=== PATIENT | female | born 1935 | race Caucasian/White ===

== ENCOUNTER 2017-03-13 10:53 | Inpatient (IN) | payer MEDICARE, OTHER ==
--- NOTE | ~2017-03-13 | CN ---
Consultation Report [facility] [address] [place]. [address] NAME: XIMENA ANDREWS : 35 STATUS : ADM IN PAT#: [id number] AGE: 81 ADM/REG DATE : 03/13/17 MR#: [id number] REPORT SERV DATE: 03/14/17 DICTATED BY: REJI KITCHEN DATE: 03/14/17 REPORT STATUS : Draft TRANSCRIBED BY: MODL DATE: 03/14/17 INFECTIOUS DISEASE CONSULT DATE OF CONSULTATION: REASON FOR CONSULT: Enterococcal bacteremia. HISTORY OF PRESENT ILLNESS: An 81-year-old white lady with history of peripheral vascular disease, status post left carotid endarterectomy, left superficial femoral artery stent, infrarenal aortic stenosis, diabetes, COPD, lung nodules, coronary artery disease, pacemaker for bradycardia, hypertension, liver cirrhosis of unknown etiology, with rectal and esophageal varices. She had an upper endoscopy in 2013, who was admitted for fever, chills, and weakness. She has had a history of frequent hospitalizations and she was here between the 12/19/2016 and 12/21/2016 with supposed COPD exacerbation and again between the 12/24/2016 and 12/28/2016. She had a followup CT of the chest in January for the nut former that showed subcentimeter pulmonary nodules and granulomatous changes in the liver and spleen. On the 03/10/2017, she got off her electric chair to diamond picker something from a higher level, she stepped on a stool, and when she stepped down, she got caught in the electric chair footrest, so she fell. It sounds like she fell against her bottom. The next day, she started feeling sick. She had nausea, lack of appetite, vomiting, and fever. Her family brought her to the hospital on the 03/13/2017. Although she reportedly had complaints of nausea and vomiting, in the ER, the exam mentioned diffuse expiratory wheezes. She was treated as a community-acquired pneumonia with Rocephin, azithromycin, and high doses of steroids. Today, the blood cultures done in the ER came positive for Enterococcus sensitive to vancomycin, so an ID consult was requested. The patient reported normal bowel movements until she fell, but since then she has had just "smears." She had colonoscopy in 2013 that showed hemorrhoids and rectal varices and an EGD that showed the gastritis and esophageal varices. She reports no problems urinating. No dysuria. No retention that she knows of. She has had no abdominal pain. No exacerbation of cough or shortness of breath. No new joint pains or bone pains. Upon admission, she had a temperature of 101.7. Lab work showed a lactic acid of 1.5, procalcitonin of 2.9, WBC 14.9. Urinalysis was suggestive of some dehydration with some casts, few bacteria, very little white blood cells. ABGs on admission on 2 L showed pH of 7.5, pCO2 of 35, pO2 of 75, and saturation 96% on 2 L. Chest x-ray, with poor inhalation plus obesity on a portable film made for a poor image. She had a CT scan of the abdomen and pelvis without contrast. On the lower lung vega, there was no obvious infiltrate. The liver was small. The liver enlarged. There is some calcifications in the liver and spleen. There are some mild left kidney atrophies without any kidney stones. Consultation Report [address] [address] NAME: XIMENA ANDREWS : 35 STATUS : ADM IN PAT#: [id number] AGE: 81 ADM/REG DATE : 03/13/17 MR#: [id number] REPORT SERV DATE: 03/14/17 DICTATED BY: REJI KITCHEN DATE: 03/14/17 REPORT STATUS : Draft TRANSCRIBED BY: KARLY DATE: 03/14/17 Today, she is afebrile. She is on 2 L of oxygen. Blood pressure is on the high side. LABORATORY WORK: Lab work showed a WBC of 6, platelets 77, segments 86, bands 1, creatinine 0.8. Echocardiogram had adequate visualization, good left ventricular ejection fraction, presence of diastolic dysfunction, trace mitral and tricuspid regurgitation, some mild aortic and mitral valve leaflets thickening. There is no mention about the pacemaker wire that I can see. PAST MEDICAL HISTORY: As I mentioned above plus prior history of esophageal stricture. PAST SURGICAL HISTORY: Cholecystectomy, appendectomy, hysterectomy, lower back surgery, pacemaker placement, and left hand surgery. FAMILY HISTORY: Diabetes, lung cancer, heart disease. ALLERGIES: CODEINE, CAUSED "HIVES AND WELTS. MEDICATIONS ON ADMISSION: Amlodipine, aspirin, Lipitor, Astelin nasal spray, Symbicort, carvedilol, Flonase as needed, Lasix, hydralazine, insulin, labetalol, lisinopril, Mycostatin cream under the breast and abdomen, spironolactone. SOCIAL HISTORY: Lives with her daughter. She is a . Quit smoking in the past. PHYSICAL EXAMINATION: GENERAL: She is alert. HEENT: She is edentulous. She is a good historian. LUNGS: Mildly decreased sounds. Very few fine crackles, but nothing significant. HEART: Regular rhythm with about 2/6 murmur at the sternal border and precordial. ABDOMEN: Obese. Questionable left lower quadrant tenderness to the palpation. EXTREMITIES: Hands and feet without signs of embolies. SKIN: She has some erythema in the deep skin fold of the groin. I did not see any open wounds. She has a tiny ecchymosis over the right coccyx area, but no open wound. OTHER INVESTIGATIONS: Influenza screen negative. Pneumococcal urine antigen negative. Yesterday, bilirubin was 2.7. Transaminases within normal limits. ASSESSMENT AND PLAN: 1. Enterococcus bacteremia. 2. The patient has a pacemaker, liver cirrhosis with esophageal and rectal varices and chronic obstructive pulmonary disease. 3. History of diabetes,peripheral vascular disease. Reported prior left superficial femoral artery stent and infrarenal aortic stenosis. Consultation Report [address] [place]. [address] NAME: XIMENA ANDREWS : 35 STATUS : ADM IN [facility]#: [id number] AGE: 81 ADM/REG DATE : 03/13/17 MR#: [id number] REPORT SERV DATE: 03/14/17 DICTATED BY: REJI KITCHEN DATE: 03/14/17 REPORT STATUS : Draft TRANSCRIBED BY: MODKem DATE: 03/14/17 The source of bacteremia is not clear. Again, with this organism, I have to worry about the GI tract. This patient has presumed liver cirrhosis. She has esophageal and rectal varices. Echocardiogram showed no obvious findings to suggest endocarditis, but I think, we should consider MEREDITH, especially with the presence of pacemaker. I will consult Dr. Bobo Kuhn who put the pacemaker in. The pacemaker site has no inflammatory changes. Last colonoscopy was in 2013 as I mentioned. The repeat blood cultures were sent. I do not see any evidence of pneumonia or chronic obstructive pulmonary disease exacerbation, so we will stop the Rocephin and azithromycin and taper down the steroids. I discussed with the patient and her nurse. ESME/MODL Reji Kitchen M.D. / [id number] CC: MD LATONYA Shay CINDY MARIE
--- NOTE | ~2017-03-13 | DS ---
Discharge Summary [address] [place]. [address] NAME: XIMENA ANDREWS : 35 STATUS : DIS IN PAT#: [id number] AGE: 81 ADM/REG DATE : 03/13/17 MR#: [id number] REPORT SERV DATE: 03/23/17 DICTATED BY: NICA CROSS DATE: 03/21/17 REPORT STATUS : Draft TRANSCRIBED BY: MODL DATE: 03/21/17 ADMISSION DATE: 03/13/2017 DISCHARGE DATE: 03/21/2017 DISCHARGE DIAGNOSES: 1. Enterococcal bacteremia. 2. Enterococcal endocarditis. 3. Uncontrolled hypertension. 4. Uncontrolled diabetes with hypoglycemia. 5. Chronic hypoxemic respiratory failure. 6. Chronic obstructive pulmonary disease. 7. Coronary artery disease with previous stenting. 8. Peripheral arterial disease with previous left carotid endarterectomy, left superficial femoral artery stent, and to date, nontreated infrarenal aortic stenosis. 9. Pulmonary nodule, stable on CT. 10.Cirrhosis with varices and splenomegaly. 11.Thrombocytopenia. 12.Hyperlipoproteinemia. 13.Iron deficiency, followed by Dr. Hurst. 14.B12 deficiency, documented in 06/2016, therapy started. 15.Proteinuria. 16.Left renal atrophy. 17.Sick sinus syndrome, post-pacemaker placement. OPERATIONS AND PROCEDURES: PICC line placement. PRESENT ILLNESS: This is an 81-year-old white female, who was triaged in the emergency room on 03/13/2017, at 1053 hours, complaining of chills and vomiting. Admission ER vital signs; blood pressure 205/65, temp 101.7, pulse 83, respirations 18, O2 saturation 87%. After evaluation in the emergency room, she was thought to have hypoxemic respiratory failure with pneumonia. She was referred to the Hospitalist Service. She was seen by Dr. Tidwell, admitted as described on admission history and physical examination. ADDITIONAL HISTORY: Included a hospitalization here on 12/19/2016 to 12/21/2016 with discharge diagnoses, chronic obstructive pulmonary disease exacerbation. In addition, she was here on 12/24/2016 to 12/28/2016, again with what was thought to be a chronic obstructive pulmonary disease exacerbation. Additional history per Dr. Tidwell and ID professional housing consultant, Dr. Noonan. PHYSICAL EXAMINATION: Per Dr. Tidwell. ADMISSION LABORATORY: Per Dr. Tidwell. Discharge Summary [address] [place]. [address] NAME: XIMENA ANDREWS : 35 STATUS : DIS IN PAT#: [id number] AGE: 81 ADM/REG DATE : 03/13/17 MR#: [id number] REPORT SERV DATE: 03/23/17 DICTATED BY: NICA CROSS DATE: 03/21/17 REPORT STATUS : Draft TRANSCRIBED BY: MODL DATE: 03/21/17 HOSPITAL COURSE: She was admitted by Dr. Tidwell with working diagnoses of: 1. Community-acquired pneumonia with sepsis, could also be a bronchitis with sepsis. 2. Acute exacerbation of chronic obstructive pulmonary disease. 3. Respiratory alkalosis. 4. All of the above occurring in the setting of the above-mentioned comorbidities. She was admitted to [address] [place] [address]. She was given oxygen, bronchodilator therapy, and empiric antimicrobial therapy with Rocephin and Zithromax. In addition, she was given IV corticosteroids. Her blood cultures returned growing Enterococcus faecalis. ID consultation was obtained with Dr. Reji Noonan. His impression was Enterococcus bacteremia. Her vascular, pacemaker, pulmonary, and hepatic disease were noted. The source of her bacteremia was not clear. He was concerned about her GI tract. He suggested a transesophageal echocardiogram in the presence of her pacemaker. He also felt she would need a colonoscopy in the near future. Cardiology consultation was obtained. She was seen by Dr. Corey Kuhn. A transthoracic echocardiogram was initially done that showed normal LV size with preserved EF, mild LVH with mild left atrial enlargement, moderate diastolic dysfunction, and normal RV size and systolic function with trace mitral and tricuspid regurgitation. Based on the above, a transesophageal echocardiogram was done on 03/16/[address] Kuhn. Findings included the aortic valve noncoronary cusp has a suspicious undulating echodensity on the aortic side of the valve. Normal variant versus vegetation. No other significant abnormalities were noted. Based on the above, it was felt she should be treated as if she had Enterococcal faecalis endocarditis with six weeks of Rocephin and ampicillin. Surveillance blood cultures on antimicrobial therapy done on the were no growth. Her hospitalist care was assumed by the undersigned on 03/20/2017. She was also seen on 03/21/2017. She required intensification of her antihypertensive therapy and deescalation in her insulin therapy for uncontrolled hypertension and symptomatic hypoglycemia. A PICC line was placed. Case Management was able to provide a discharge destination at [facility], which was satisfactory with the patient. On 03/21/2017, she felt overall improved. She was still weak. She had no focal symptoms or new findings on exam. Discharge BMP: Sodium 135, potassium 4.3, chloride 97, CO2 of 34, BUN 15, creatinine 0.99, glucose 128, calcium 9.1. CBC: White count 6.6, hemoglobin 13.2, and platelets 130,000. A.c. and bedtime blood sugars on 03/20/2017; 145, 138, 98, 176; the day of discharge, 137 and 159. Discharge Summary [address] [address] NAME: XIMENA ANDREWS : 35 STATUS : DIS IN PAT#: [id number] AGE: 81 ADM/REG DATE : 03/13/17 MR#: [id number] REPORT SERV DATE: 03/23/17 DICTATED BY: NICA CROSS DATE: 03/21/17 REPORT STATUS : Draft TRANSCRIBED BY: KARLY DATE: 03/21/17 It is felt she has achieved a level of stability improvement where she can be safely discharged to [facility]. She will need a followup appointment to see Dr. Noonan in three to four weeks. She will need a followup appointment to see Dr. Corey Kuhn for a repeat transesophageal echo in three to four weeks. She will need to have an outpatient colonoscopy with the GI physician that provides care for [place] Medicaid patients. DISCHARGE MEDICATIONS: Aspirin 81 mg daily, Lipitor 20 mg daily, Astelin nasal spray two sprays twice daily, Coreg 12.5 mg twice daily, Rocephin 2 g IV q.12 hours for four weeks, Lasix 40 mg daily, NovoLog insulin correction scale 1 a.c., NovoLog 8 units a.c., Levemir 24 units daily, Zestril 40 mg daily, Mycostatin cream under the breast and abdominal skin folds twice daily, Aldactone 25 mg twice daily, Apresoline 25 mg three times daily, ampicillin 2 g IV every 6 hours for four weeks, albuterol nebs q.4 hours while awake, Dulera two puffs twice daily, Tylenol 650 mg every six hours as needed, hypoglycemia protocol with 50% dextrose 25/50 mL, glucagon 1 mg IM or glucose tabs 3 or 6, Flonase nasal spray two sprays per nostril twice daily as needed, Zofran 4 mg p.o. or sublingually every 4 hours as needed, amlodipine 5 mg at bedtime, B12 1000 mcg daily. She will need a CBC and CMP done weekly faxed to Dr. Noonan, [phone]. DISCHARGE TIME: Greater than 30 minutes. DD/MODL Nica Cross M.D. / [id number] CC: Eh Carranza CINDY MARIE Michael C Allan, M.D. Paul Cornea, M.D. [facility]
--- NOTE | ~2017-03-13 | HP ---
History And Physical [address] [place]. [address] NAME: XIMENA ANDREWS : 35 STATUS : ADM IN [facility]#: [id number] AGE: 81 ADM/REG DATE : 03/13/17 MR#: [id number] REPORT SERV DATE: 03/13/17 DICTATED BY: INDER TIDWELL DATE: 03/13/17 REPORT STATUS : Draft TRANSCRIBED BY: MODL DATE: 03/13/17 DATE OF ADMISSION: 03/13/2017 CHIEF COMPLAINT: Fevers and chills. HISTORY OF PRESENT ILLNESS: This is an 81-year-old lady with history of coronary artery disease, peripheral vascular disease, diabetes, hypertension, COPD, presenting with fevers and chills. The patient reports that on Sunday, she felt weak and she actually fell. Fortunately, the patient did not sustain any injuries. The patient thought she would rest off at home, but then on Sunday, the patient continued to have malaise, generalized weakness, and "feeling sick." The patient reports the sickness as having fevers with chills. The patient also had some nausea and decrease in appetite. The patient has had some cough, but nothing that was actually out of the norm from her baseline. The patient otherwise did not have any other focal symptoms. Denies any dysuria. Denies any diarrhea. The patient also denies any focal pain other than the mild pain in her bottom from the fall. The patient decided to come to the ER for further evaluation and care. In the ER, patient was found to be febrile with temperature of 101.7. The patient was otherwise hemodynamically stable. Initial lab evaluation revealed benign electrolytes, but with a leukocytosis of 14.9 on CBC. Chest x-ray showed mild venous congestion and urinalysis was negative. Flu panel was negative, but procalcitonin was also elevated at 0.9. Internal Medicine consultation was requested for admission of the patient for further evaluation and care. REVIEW OF SYSTEMS: The patient has had the fevers with chills. Otherwise, 14-point review of systems reviewed and negative other than mentioned above. MEDICATIONS: 1. Tylenol 500 to 1000 mg p.o. three times daily p.r.n. 2. Norvasc 10 mg p.o. at bedtime. 3. Aspirin 81 mg p.o. q.a.m. 4. Lipitor 20 mg p.o. at bedtime. 5. Symbicort two puffs inhaled twice daily. 6. Coreg 12.5 mg p.o. b.i.d. 7. Flonase two sprays nasally twice daily p.r.n. 8. Lasix 40 mg p.o. q.a.m. 9. Levemir 24 units twice daily subcu. 10.NovoLog 10 units subcu three times daily before meals. 11.Lisinopril 40 mg p.o. at bedtime. 12.Nystatin cream twice daily under breasts and abdominal skin folds. 13.Aldactone 25 mg p.o. b.i.d. 14.Hydralazine 10 mg p.o. b.i.d. 15.Labetalol 100 mg p.o. q.12 hours p.r.n. ALLERGIES: CODEINE. History And Physical [address] [address] NAME: XIMENA ANDREWS : 35 STATUS : ADM IN [facility]#: [id number] AGE: 81 ADM/REG DATE : 03/13/17 MR#: [id number] REPORT SERV DATE: 03/13/17 DICTATED BY: INDER TIDWELL DATE: 03/13/17 REPORT STATUS : Draft TRANSCRIBED BY: KARLY DATE: 03/13/17 PAST MEDICAL HISTORY: 1. Insulin-dependent diabetes type 2. 2. Coronary artery disease. 3. Hypertension. 4. Hypothyroidism. 5. Peripheral vascular disease. 6. Chronic obstructive pulmonary disease, on 2 L of oxygen nightly. 7. GERD. PAST SURGICAL HISTORY: 1. Left carotid endarterectomy. 2. Left superficial femoral artery stents. 3. Coronary artery stents. 4. Cholecystectomy. 5. Appendectomy. 6. Hysterectomy. 7. Several back surgeries. FAMILY HISTORY: 1. Diabetes. 2. Coronary artery disease. SOCIAL HISTORY: The patient has a 35 pack-year history of smoking before she quit in 1999. The patient does not use alcohol or use any illicit drugs. The patient lives at home with her daughter and two granddaughters. At baseline, the patient ambulates with a walker as well as a walking stick. Also, for extended trips, the patient has a power wheelchair. PHYSICAL EXAMINATION: VITAL SIGNS: Temperature 101.7, blood pressure 135/50, pulse is 83, respiratory rate is 18, saturating 87% on 2 L of oxygen. NEURO: The patient is alert and oriented x3 with no focal neurologic deficits. GENERAL: The patient is awake, does not appear to be in acute distress, and she is cooperative. NECK: No JVD. No lymphadenopathy. Normal thyroid. CHEST: No midline sternotomy scar and no tenderness to palpation. LUNGS: The patient has diffuse rhonchi bilaterally with some scattered wheezes. The patient otherwise has fairly normal respiratory effort on 2 L of oxygen per nasal cannula. CARDIOVASCULAR: Regular rate and rhythm with no murmurs, rubs, or gallops, and PMI is nondisplaced. ABDOMEN: Soft, nontender with active bowel sounds, and no organomegaly. EXTREMITIES: No edema. Normal distal pulses. No calf tenderness. SKIN: Clean, dry, warm, and intact. LABORATORY DATA: Sodium is 134, potassium 3.0, chloride 95, BUN 15, creatinine 0.81, glucose 129, calcium 8.9. LFTs and lipase are within normal limits. White blood cell count is 14.9, hemoglobin 13.8, platelets 85. Lactate was 1.5. Procalcitonin level is 2.9. Flu History And Physical [address] [address] NAME: XIMENA ANDREWS : 35 STATUS : ADM IN [facility]#: [id number] AGE: 81 ADM/REG DATE : 03/13/17 MR#: [id number] REPORT SERV DATE: 03/13/17 DICTATED BY: INDER TIDWELL DATE: 03/13/17 REPORT STATUS : Draft TRANSCRIBED BY: MODL DATE: 03/13/17 panel was negative for A and B. Urinalysis was also negative for urinary tract infection. Chest x-ray is personally interpreted and it shows a bout of venous congestion, but no focal infiltrates. ABG showed pH of 7.50, pCO2 35, PO2 75, and oxygen saturation of 95.8% on 28% FiO2. ASSESSMENT AND PLAN: This is an 81-year-old lady with history of chronic obstructive pulmonary disease, hypertension, diabetes, coronary artery disease, and peripheral vascular disease, presenting with a community-acquired pneumonia with sepsis. 1. Community-acquired pneumonia with sepsis, could also be a bronchitis with sepsis. 2. Acute exacerbation of chronic obstructive pulmonary disease. 3. Respiratory alkalosis. 4. Chronic thrombocytopenia. 5. Hypokalemia. 6. Insulin-dependent diabetes type 2. 7. Hypertension. 8. Coronary artery disease. 9. Peripheral vascular disease. 10.Hypothyroidism. PLAN: The plan is to admit the patient under telemetry monitoring. The patient will be given oxygen support and bronchodilator therapy. The patient will be started on empiric IV Rocephin and Zithromax. The patient will also be treated with IV steroids. I will complete infectious workup with blood cultures, sputum cultures, procalcitonin level, and urinary antigens, and for electrolyte deficiencies, they will be replaced as needed. For the rest of stable past medical conditions including diabetes, coronary artery disease, peripheral vascular disease, I will continue home medications. The patient will also be seen by Physical Therapy for assessment of safety at home. Standard DVT prophylaxis. The patient is full code at this time. YSC/MODL Inder Tidwell MD / [id number] CC: Inder Tidwell MD [facility] YU
--- NOTE | ~2017-03-13 | TEE ---
Transesophageal Echocardiogram [facility] [address] [place]. [address] NAME: XIMENA ANDREWS : 35 STATUS : ADM IN [facility]#: [id number] AGE: 81 ADM/REG DATE : 03/13/17 MR#: [id number] REPORT SERV DATE: 03/16/17 DICTATED BY: AMANDA KUHN DATE: 03/16/17 REPORT STATUS : Draft TRANSCRIBED BY: MODKem DATE: 03/16/17 INDICATION: Bacteremia. PROCEDURE IN DETAIL: The patient was brought to the Cardiac Short-Stay Unit in a fasting state. I thoroughly discussed the risks and benefits of the procedure with the patient. She agreed to proceed. All questions were answered. She was prepared in the usual fashion on the short-stay bed. The Anesthesia Service was present to provide monitored anesthesia care in the form of IV propofol. When a proper level of sedation was achieved, the transesophageal echocardiogram probe was gently inserted into the patient's oropharynx and advanced into the esophagus without difficulty. FINDINGS: The left atrium is mildly enlarged. No thrombus is seen. The left atrial appendage does not show any thrombus. The mitral valve is morphologically normal. There is mild mitral regurgitation. No vegetation is seen. Left ventricular systolic function appears to be grossly preserved. The right ventricle is grossly within normal limits. The tricuspid valve is fairly well seen. No obvious vegetation or thrombus is seen. There is [id number] tricuspid insufficiency. Pacing wires are seen in the right heart. Examination of these wires does not reveal any vegetation. The right atrium is mildly enlarged. The interatrial septum is intact by 2D interrogation as well as color flow Doppler. The aortic valve is trileaflet and opens well. There is no significant aortic insufficiency. On the non-coronary cusp, there is a small undulating mass on the aortic side. This may possibly represent some variant of normal anatomy or could possibly represent vegetation. It is small and does not impede flow. The echodensity does not suggest thrombus or calcification. Echodensity is very similar to the valve itself. The pulmonic valve is not well seen. Grossly there is no abnormality. No significant pulmonic insufficiency is seen. There is no obvious pericardial effusion. The descending thoracic aorta has mild atherosclerotic plaquing. CONCLUSION: 1. THE AORTIC VALVE NON-CORONARY CUSP HAS A SUSPICIOUS UNDULATING ECHODENSITY ON THE AORTIC SIDE OF THE VALVE. NORMAL VARIANT CANNOT BE RULED OUT, NOR CAN VEGETATION. 2. NO OTHER SIGNIFICANT ABNORMALITIES NOTED ABOVE. MCA/MODL anda Kuhn M.D. / [id number]
--- NOTE | ~2017-03-13 | IDS ---
Interim Discharge Summary [facility] [address] [place]. [address] NAME: XIMENA ANDREWS : 35 STATUS : ADM IN [facility]#: [id number] AGE: 81 ADM/REG DATE : 03/13/17 MR#: [id number] REPORT SERV DATE: 03/19/17 DICTATED BY: INDER OLIVAREZ DATE: 03/19/17 REPORT STATUS : Draft TRANSCRIBED BY: MODL DATE: 03/19/17 ADMISSION DATE: 03/13/2017 DISCHARGE DATE: WORKING DIAGNOSES: 1. Enterococcal bacteremia. 2. Enterococcal endocarditis of aortic valve. 3. Poorly-controlled hypertension. 4. Coronary artery disease. 5. Insulin-dependent diabetes type 2. 6. Peripheral vascular disease. 7. Chronic obstructive pulmonary disease with chronic hypoxic respiratory failure on 2 L of oxygen at baseline at home. CONSULTANTS: 1. Dr. Noonan of Infectious Disease. 2. Cardiology. PROCEDURES: Transesophageal echocardiogram, performed on 03/16/[address] Bobo Kuhn, showed an aortic valve noncoronary cusp has a suspicious undulating echodensity on the aortic side of the valve. Normal variant cannot be ruled out nor can vegetation. Otherwise, it did not show any significant abnormalities. HOSPITAL COURSE: This is an 81-year-old lady who was initially admitted to the hospital with diagnosis of a community-acquired pneumonia with sepsis. For details, please refer to my own H and P. In summary, the patient was admitted and was started on empiric antibiotics for community-acquired pneumonia. By the second day of the hospital stay, the patient was found to have enterococcal bacteremia. The patient had repeat blood cultures that were positive for enterococcal bacteremia. Infectious Disease was consulted, and the patient subsequently underwent a transesophageal echocardiogram with the findings as mentioned above. Currently, the patient is on ampicillin 2 g IV q.6h as well as Rocephin 2 g IV q.12. The patient will tentatively be treated with the above IV antibiotics for four to six weeks, and the patient will need to have a repeat transesophageal echocardiogram. As the source of infection is unclear, Infectious Disease has recommended the patient to have a colonoscopy, which she can have as an outpatient in the near future. Case Management is working to get it scheduled. The patient will likely need to be transferred to SNF to continue the IV antibiotic therapy. Otherwise, the patient has been fairly stable in the rest of her chronic medical conditions. ODALIS/KARLY Inder Olivarez MD Interim Discharge Summary [address] [address] NAME: XIMENA ANDREWS : 35 STATUS : ADM IN PAT#: [id number] AGE: 81 ADM/REG DATE : 03/13/17 MR#: [id number] REPORT SERV DATE: 03/19/17 DICTATED BY: INDER OLIVAREZ DATE: 03/19/17 REPORT STATUS : Draft TRANSCRIBED BY: KARLY DATE: 03/19/17 / [id number] CC: MD LATONYA Shay CINDY MARIE
--- NOTE | ~2017-03-13 | CN ---
Consultation Report [facility] [address] [place]. [address] NAME: XIMENA CANTOR : 35 STATUS : ADM IN PAT#: [id number] AGE: 81 ADM/REG DATE : 03/13/17 MR#: [id number] REPORT SERV DATE: 03/15/17 DICTATED BY: BOBO KUHN DATE: 03/15/17 REPORT STATUS : Draft TRANSCRIBED BY: MODL DATE: 03/15/17 CONSULTATION DATE OF CONSULTATION: 03/15/2017 REASON FOR VISIT: Bacteremia. HISTORY OF PRESENT ILLNESS: Ms. Cantor is an 81-year-old female with sick sinus syndrome, has a chronic indwelling pacemaker. She has presented to the hospital with infection type symptoms. Bacteremia has been diagnosed. Thus far, there is no obvious source. I have been asked to perform a MEREDITH due to the indwelling pacemaker and possibility of an infected pacemaker or endocarditis. She reports no difficulty swallowing at this time. PAST MEDICAL HISTORY: 1. Sick sinus syndrome with pacemaker. 2. Diabetes. 3. History of coronary artery disease. 4. Hypertension. 5. Hypothyroidism. 6. Peripheral vascular disease. SOCIAL HISTORY: She does not smoke. There is no family in the room at this time. FAMILY HISTORY: Noncontributory. HOME MEDICATIONS: Please see the list in the chart as it is extensive. Relevant cardiac medications are Norvasc 10 mg every night at bedtime, Lipitor 20 mg at bedtime, carvedilol 12.5 mg b.i.d., hydralazine 10 mg b.i.d., lisinopril 40 mg every night at bedtime, spironolactone 25 mg b.i.d. ALLERGIES: SHE IS ALLERGIC TO CODEINE. REVIEW OF SYSTEMS: A 10 system review was asked and is negative except for noted above in history of present illness and for the following. She had a fall over the weekend. She has been weak and tired. She has had nausea. She has had fevers and chills at home. A productive cough. No chest pain or palpitations. PHYSICAL EXAMINATION: VITAL SIGNS: Temperature 98.8, heart rate 71, blood pressure 193/81. GENERAL: Ms. Cantor is a well-developed female, who does not appear to be critically ill. She is in no distress. HEENT: Negative. She does not appear dehydrated. There is no JVD in her neck. LUNGS: Sound clear. Consultation Report [facility] [id number] [place]. [address] NAME: XIMENA CANTOR : 35 STATUS : ADM IN [facility]#: [id number] AGE: 81 ADM/REG DATE : 03/13/17 MR#: [id number] REPORT SERV DATE: 03/15/17 DICTATED BY: BOBO KUHN DATE: 03/15/17 REPORT STATUS : Draft TRANSCRIBED BY: KARLY DATE: 03/15/17 HEART: Tones are regular. There is no obvious murmur. ABDOMEN: The abdominal exam overall was benign. She has bowel sounds. She is not tender. EXTREMITIES: Does not show significant edema. NEUROLOGICAL: She moves all four extremities equally. Normal speech. SKIN: Exam shows bruising. No obvious rash. LABORATORY DATA: White blood cell count 6, hematocrit 37.6, platelets 100. Sodium 137, potassium 3.7, BUN 22, creatinine 0.8. Troponin 0.14 and then 0.02. Urinalysis does not show obvious infection. There is a telemetry that shows atrial pacing. Echocardiogram, this demonstrates a normal ejection fraction with no obvious vegetation seen. IMPRESSION: 1. Unexplained bacteremia. 2. Pacemaker. PLAN: Reasonable to perform a transesophageal echocardiogram to examine her pacemaker leads and to examine her valves more closely for any sign of infection. I have discussed this with her today. As before, she denies any recent swallowing problems. We discussed the risks and benefits of this. In particular, we discussed sedation risks via the anesthesiologist, risk of perforation or bleeding. She understands these risks are small and she agrees to proceed, this will be tomorrow. MCKENZIE/KARLY Bobo Kuhn M.D. / [id number] CC: MD Radha Shay
[~2017-03-13 10:53] MED LIST: ACET500CAP PO; ACTOS45 PO; ALBUTEROL0.083 % INH; AMOXIL500 MG PO; APRES25 PO; ASAB PO; ASTELIN NAS; AUG875 PO; AVELOX400 PO; BIAXIN5 PO; CAT1 PO; CAT2 PO; CEFT5 PO; COR20 PO; COR40 PO; COREG12 PO; COREG25 PO; COREG6 PO; DULERA 200 MCG/13 GM INH; EZFE 200200 MG PO; FERROUS SULF325 M1 PO; FLONASE NAS; FLORASTOR250 MG PO; GLUCOPHAGE1000 MG PO; GLUCOTRO10 PO; GLUCOV5 PO; HALF81 PO; HCTZ25B PO; HYDROCHLOROT25 MG OR; HYDROMET1 ML PO; JANUMET1 TA1 PO; JANUVIA100 MG PO; K-TABS10 MEQ PO; L40 PO; LANTUS SC; LEVAQUIN750 MG PO; LEVEMFLXPN SC; LEVEMIR SC; LIPITOR20 PO; LISINOPRIL40 MG PO; MUCINEX600 MG PO; MYCOSCROI TOP; NORV10 PO; NORV5 PO; NOVOLOG SC; NOVOPENMIX SC; OCEAN NAS; P10 PO; P20 PO; PRILO PO; PROAIR HFA INH; SPIRIVA INH; SPIRO25 PO; SPIRO50 PO; SYMBICORT 160/41 INH INH; TRANDAT100 PO; ZESTRIL30 MG PO; ZESTRIL40 MG PO
[2017-03-13 11:35] LABS: BASOPHILS 0 %; EOSINOPHILS 0 %; HEMATOCRIT 39.7 % (36.0-48.0); HEMOGLOBIN 13.8 g/dL (12.0-16.0); IMMATURE GRANULOCYTES 0.3 %; IMMATURE GRANULOCYTES ABSOLUTE 0.05 10/3/uL (0.0-0.11); LYMPHOCYTES 12.8 %; MEAN CORPUS HGB CONC 34.8 g/dL (32.0-36.0); MEAN CORPUSCULAR HEMOGLOB 31.7 pg (26.0-34.0); MEAN CORPUSCULAR VOLUME 91.1 fL (80-100); MEAN PLATELET VOLUME 11.1 fL (9.2-13.0); MONOCYTES 6.1 %; MONOCYTES ABSOLUTE 0.91 10/3/uL (0.21-1.20); NEUTROPHILS 80.8 %; NEUTROPHILS ABSOLUTE 12.04 10/3/uL (2.02-8.40); PLATELET COUNT 85 10/3/uL (150-400); RBC DISTRIBUTION WIDTH 13.7 % (12.0-16.0); RED CELL COUNT 4.36 10/6/uL (4.0-5.6)
[2017-03-13 11:38] LABS: ER CBC TAT 0 Hrs 08 Mins; MANUAL DIFF NO %; WHITE BLOOD CELLS 14.9 10/3/uL (4.5-10.5)
[2017-03-13 11:49] LABS: ALLENS TEST Pos; BE (BASE EXCESS) 3.5 MEQ/L (0 +/- 2.5); CARBOXYHEMOGLOBIN 1.9 % (0-3); DEVICE NC; HCO3 (ACTUAL BICARBONATE) 26.4 MEQ/L (23-27); HEMOBLOGIN CONTENT 14.9 G/DL (12-16); INSTRUMENT SERIAL # 8087; METHEMOGLOBIN 0.3 % (0-3); O2 CONTENT 19.6 VOL% (18-24); OPERATOR ID 35798; PCO2 (CO2 TENSION) 35 MMHG (35-45); PO2 (O2 TENSION) 75 MMHG (79-93); SAMPLE Arterial
[2017-03-13 11:51] LABS: A/G RATIO 0.6 (0.7-1.9); ALBUMIN 2.4 G/DL (3.5-5.0); ALKALINE PHOSPHATASE 96 U/L (45-117); BUN (BLOOD UREA NITROGEN) 15 MG/DL (6-23); CALCIUM, SERUM 8.9 MG/DL (8.5-10.4); CHLORIDE, SERUM 95 MMOL/L (96-112); CO2 (CARBON DIOXIDE) 28 MMOL/L (24-34); CREATININE 0.81 MG/DL (0.55-1.02); GFR AFRICAN AMERICAN 79 ML/MIN (>=60); GFR NON AFRICAN AMERICAN 68 ML/MIN (>=60); GLUCOSE, SERUM 129 MG/DL (60-99); SGOT(AST) 40 U/L (5-40); SGPT(ALT) 16 U/L (5-65); SODIUM, SERUM 134 MMOL/L (135-148); TOTAL BILIRUBIN 2.7 MG/DL (0-1.2); TOTAL PROTEIN 6.4 G/DL (6.0-8.5)
[2017-03-13 11:53] LABS: LACTATE 1.5 MMOL/L (0.3-2.4)
[2017-03-13 12:03] LABS: ASCORBIC ACID (UR NOT ORDER) NEG (NEG); BILIRUBIN, URINE NEGATIVE (NEG); ER URINALYSIS TAT 0 Hrs 21 Mins; KETONE, URINE TRACE MG/DL (NEG); LEUKOCYTE ESTERASE(NOT OR NEG (NEG); NITRITE (URINE) NEG (NEG); WBC (NOT ORDERED) (RFLEX) 3 (0-5)
[2017-03-13 12:52] LABS: INFLUENZA A SCREEN NEGATIVE (NEGATIVE); INFLUENZA B SCREEN NEGATIVE (NEGATIVE)
[2017-03-13] MEDS ORDERED: TRANDAT100 PO (13:29)
[2017-03-13 16:23] LABS: TROPONIN I 0.14 NG/ML (<0.05)
[2017-03-14 05:15] LABS: CALCIUM, SERUM 8.4 MG/DL (8.5-10.4); CHLORIDE, SERUM 99 MMOL/L (96-112); CO2 (CARBON DIOXIDE) 29 MMOL/L (24-34); CREATININE 0.81 MG/DL (0.55-1.02); GFR AFRICAN AMERICAN 79 ML/MIN (>=60); GFR NON AFRICAN AMERICAN 68 ML/MIN (>=60); POTASSIUM, SERUM 3.3 MMOL/L (3.5-5.3); SODIUM, SERUM 138 MMOL/L (135-148)
[2017-03-14 05:20] LABS: HEMATOCRIT 36.5 % (36.0-48.0); HEMOGLOBIN 13.1 g/dL (12.0-16.0); MEAN CORPUS HGB CONC 35.9 g/dL (32.0-36.0); MEAN CORPUSCULAR HEMOGLOB 32.9 pg (26.0-34.0); MEAN CORPUSCULAR VOLUME 91.7 fL (80-100); MEAN PLATELET VOLUME 11.9 fL (9.2-13.0); PLATELET COUNT 77 10/3/uL (150-400); RBC DISTRIBUTION WIDTH 13.5 % (12.0-16.0); RED CELL COUNT 3.98 10/6/uL (4.0-5.6)
[2017-03-14 05:23] LABS: BUN (BLOOD UREA NITROGEN) 24 MG/DL (6-23); GLUCOSE, SERUM 168 MG/DL (60-99); MANUAL DIFF YES %; WHITE BLOOD CELLS 6.6 10/3/uL (4.5-10.5)
[2017-03-14 05:24] LABS: TROPONIN I 0.05 NG/ML (<0.05)
[2017-03-14 05:39] LABS: BAND NEUTROPHILS 1 %; LYMPHOCYTES 12 %; LYMPHOCYTES ABSOLUTE (CALC) 0.79 10/3/uL (0.67-4.30); MONOCYTES 1 %; MONOCYTES ABSOLUTE (CALC) 0.07 10/3/uL (0.21-1.20); NEUTROPHILS ABSOLUTE (CALC) 5.74 10/3/uL (2.02-8.40); SEGMENTED NEUTROPHIL (0) 86 %; TOTAL NUCLEATED CELLS 100
[2017-03-14 05:40] LABS: PLATELET ESTIMATE DEC (ADEQUATE)
[2017-03-14 11:07] LABS: ASCORBIC ACID (UR NOT ORDER) NEG (NEG); BILIRUBIN, URINE NEGATIVE (NEG); KETONE, URINE NEGATIVE (NEG); LEUKOCYTE ESTERASE(NOT OR NEG (NEG); WBC (NOT ORDERED) (RFLEX) 2 (0-5)
[2017-03-15 06:19] LABS: HEMATOCRIT 37.6 % (36.0-48.0); MEAN CORPUS HGB CONC 34.6 g/dL (32.0-36.0); MEAN CORPUSCULAR HEMOGLOB 31.6 pg (26.0-34.0); MEAN CORPUSCULAR VOLUME 91.5 fL (80-100); MEAN PLATELET VOLUME 11.9 fL (9.2-13.0); PLATELET COUNT 100 10/3/uL (150-400); RBC DISTRIBUTION WIDTH 13.3 % (12.0-16.0); RED CELL COUNT 4.11 10/6/uL (4.0-5.6); WHITE BLOOD CELLS 5.8 10/3/uL (4.5-10.5)
[2017-03-15 06:22] LABS: MANUAL DIFF YES %
[2017-03-15 06:40] LABS: LYMPHOCYTES 17 %; LYMPHOCYTES ABSOLUTE (CALC) 0.99 10/3/uL (0.67-4.30); MONOCYTES 3 %; MONOCYTES ABSOLUTE (CALC) 0.17 10/3/uL (0.21-1.20); NEUTROPHILS ABSOLUTE (CALC) 4.64 10/3/uL (2.02-8.40); PLATELET ESTIMATE SLT DEC (ADEQUATE); RBC MORPHOLOGY NORM (NORMAL); SEGMENTED NEUTROPHIL (0) 80 %; TOTAL NUCLEATED CELLS 100
[2017-03-15 07:28] LABS: DIRECT BILIRUBIN 0.2 MG/DL (0.0-0.4); POTASSIUM, SERUM 3.7 MMOL/L (3.5-5.3); SGOT(AST) 33 U/L (5-40); SODIUM, SERUM 137 MMOL/L (135-148)
[2017-03-15 07:30] LABS: BUN (BLOOD UREA NITROGEN) 22 MG/DL (6-23); CHLORIDE, SERUM 103 MMOL/L (96-112); CO2 (CARBON DIOXIDE) 24 MMOL/L (24-34)
[2017-03-15 07:31] LABS: ALKALINE PHOSPHATASE 72 U/L (45-117); CALCIUM, SERUM 8.7 MG/DL (8.5-10.4); CREATININE 0.79 MG/DL (0.55-1.02); GFR AFRICAN AMERICAN 81 ML/MIN (>=60); GFR NON AFRICAN AMERICAN 70 ML/MIN (>=60); GLUCOSE, SERUM 150 MG/DL (60-99); INDIRECT BILIRUBIN(NOT ORDER) 0.5 MG/DL (0.1-0.9); SGPT(ALT) 20 U/L (5-65); TOTAL BILIRUBIN 0.7 MG/DL (0-1.2); TOTAL PROTEIN 6.1 G/DL (6.0-8.5); TROPONIN I 0.02 NG/ML (<0.05)
[2017-03-15 08:13] LABS: PROCALCITONIN 1.26 ng/mL (<0.5)
[2017-03-16 05:34] LABS: BUN (BLOOD UREA NITROGEN) 20 MG/DL (6-23); CALCIUM, SERUM 8.6 MG/DL (8.5-10.4); CHLORIDE, SERUM 100 MMOL/L (96-112); CREATININE 0.76 MG/DL (0.55-1.02); GFR AFRICAN AMERICAN 85 ML/MIN (>=60); GFR NON AFRICAN AMERICAN 74 ML/MIN (>=60); POTASSIUM, SERUM 3.9 MMOL/L (3.5-5.3); SODIUM, SERUM 136 MMOL/L (135-148)
[2017-03-16 05:38] LABS: PROTIME (NOT ORD) 13.2 SEC (12.0-14.5)
[2017-03-16 05:49] LABS: CO2 (CARBON DIOXIDE) 29 MMOL/L (24-34); GLUCOSE, SERUM 187 MG/DL (60-99)
[2017-03-16 06:11] LABS: HEMATOCRIT 35.4 % (36.0-48.0); HEMOGLOBIN 12.1 g/dL (12.0-16.0); MEAN CORPUS HGB CONC 34.2 g/dL (32.0-36.0); MEAN CORPUSCULAR HEMOGLOB 31.4 pg (26.0-34.0); MEAN CORPUSCULAR VOLUME 91.9 fL (80-100); MEAN PLATELET VOLUME 11.3 fL (9.2-13.0); PLATELET COUNT 95 10/3/uL (150-400); RBC DISTRIBUTION WIDTH 13.2 % (12.0-16.0); RED CELL COUNT 3.85 10/6/uL (4.0-5.6); WHITE BLOOD CELLS 4.3 10/3/uL (4.5-10.5)
[2017-03-16 06:14] LABS: MANUAL DIFF YES %
[2017-03-16 07:38] LABS: BAND NEUTROPHILS 2 %; LYMPHOCYTES 13 %; LYMPHOCYTES ABSOLUTE (CALC) 0.56 10/3/uL (0.67-4.30); MONOCYTES 3 %; MONOCYTES ABSOLUTE (CALC) 0.13 10/3/uL (0.21-1.20); NEUTROPHILS ABSOLUTE (CALC) 3.61 10/3/uL (2.02-8.40); PLATELET ESTIMATE DEC (ADEQUATE); SEGMENTED NEUTROPHIL (0) 82 %; SMUDGE CELLS OCC; TOTAL NUCLEATED CELLS 100
[2017-03-16 07:39] LABS: RBC MORPHOLOGY NORM (NORMAL)
[2017-03-17 06:17] LABS: BASOPHILS 0.3 %; BASOPHILS ABSOLUTE 0.02 10/3/uL (0.0-0.16); EOSINOPHILS 0.4 %; EOSINOPHILS ABSOLUTE 0.03 10/3/uL (0.0-0.53); HEMOGLOBIN 15.6 g/dL (12.0-16.0); IMMATURE GRANULOCYTES 1.2 %; IMMATURE GRANULOCYTES ABSOLUTE 0.08 10/3/uL (0.0-0.11); LYMPHOCYTES 27.5 %; MANUAL DIFF NO %; MEAN CORPUS HGB CONC 34.7 g/dL (32.0-36.0); MEAN CORPUSCULAR HEMOGLOB 31.8 pg (26.0-34.0); MEAN CORPUSCULAR VOLUME 91.8 fL (80-100); MEAN PLATELET VOLUME 11.3 fL (9.2-13.0); MONOCYTES 12.9 %; MONOCYTES ABSOLUTE 0.89 10/3/uL (0.21-1.20); NEUTROPHILS 57.7 %; NEUTROPHILS ABSOLUTE 3.98 10/3/uL (2.02-8.40); PLATELET COUNT 104 10/3/uL (150-400); RBC DISTRIBUTION WIDTH 13.2 % (12.0-16.0); WHITE BLOOD CELLS 6.9 10/3/uL (4.5-10.5)
[2017-03-17 06:24] LABS: CALCIUM, SERUM 8.5 MG/DL (8.5-10.4); CHLORIDE, SERUM 102 MMOL/L (96-112); CREATININE 0.67 MG/DL (0.55-1.02); GFR AFRICAN AMERICAN 96 ML/MIN (>=60); GFR NON AFRICAN AMERICAN 82 ML/MIN (>=60)
[2017-03-17 06:25] LABS: BUN (BLOOD UREA NITROGEN) 13 MG/DL (6-23); CO2 (CARBON DIOXIDE) 34 MMOL/L (24-34); GLUCOSE, SERUM 36 MG/DL (60-99); POTASSIUM, SERUM 3.1 MMOL/L (3.5-5.3); SODIUM, SERUM 143 MMOL/L (135-148)
[2017-03-19 06:21] LABS: BUN (BLOOD UREA NITROGEN) 10 MG/DL (6-23); CALCIUM, SERUM 8.6 MG/DL (8.5-10.4); CHLORIDE, SERUM 98 MMOL/L (96-112); CO2 (CARBON DIOXIDE) 33 MMOL/L (24-34); CREATININE 0.75 MG/DL (0.55-1.02); GFR AFRICAN AMERICAN 87 ML/MIN (>=60); GFR NON AFRICAN AMERICAN 75 ML/MIN (>=60); GLUCOSE, SERUM 133 MG/DL (60-99); POTASSIUM, SERUM 3.8 MMOL/L (3.5-5.3); SODIUM, SERUM 139 MMOL/L (135-148)
[2017-03-19 06:35] LABS: HEMOGLOBIN 13.2 g/dL (12.0-16.0); MEAN CORPUS HGB CONC 33.9 g/dL (32.0-36.0); MEAN CORPUSCULAR HEMOGLOB 31.8 pg (26.0-34.0); MEAN CORPUSCULAR VOLUME 93.7 fL (80-100); MEAN PLATELET VOLUME 11.2 fL (9.2-13.0); PLATELET COUNT 117 10/3/uL (150-400); RBC DISTRIBUTION WIDTH 13.6 % (12.0-16.0); RED CELL COUNT 4.15 10/6/uL (4.0-5.6); WHITE BLOOD CELLS 5.5 10/3/uL (4.5-10.5)
[2017-03-19 06:36] LABS: HEMATOCRIT 38.9 % (36.0-48.0); MANUAL DIFF YES %
[2017-03-19 07:11] LABS: LYMPHOCYTES 33 %; LYMPHOCYTES ABSOLUTE (CALC) 1.82 10/3/uL (0.67-4.30); MONOCYTES 2 %; MONOCYTES ABSOLUTE (CALC) 0.11 10/3/uL (0.21-1.20); NEUTROPHILS ABSOLUTE (CALC) 3.58 10/3/uL (2.02-8.40); PLATELET ESTIMATE SLT DEC (ADEQUATE); RBC MORPHOLOGY NORM (NORMAL); SEGMENTED NEUTROPHIL (0) 65 %; SMUDGE CELLS OCC; TOTAL NUCLEATED CELLS 100
[2017-03-20 09:18] LABS: BASOPHILS 0.3 %; BASOPHILS ABSOLUTE 0.02 10/3/uL (0.0-0.16); EOSINOPHILS 2.4 %; EOSINOPHILS ABSOLUTE 0.17 10/3/uL (0.0-0.53); HEMATOCRIT 39.8 % (36.0-48.0); HEMOGLOBIN 13.1 g/dL (12.0-16.0); IMMATURE GRANULOCYTES 3.1 %; IMMATURE GRANULOCYTES ABSOLUTE 0.22 10/3/uL (0.0-0.11); LYMPHOCYTES 38.9 %; LYMPHOCYTES ABSOLUTE 2.74 10/3/uL (0.67-4.30); MEAN CORPUS HGB CONC 32.9 g/dL (32.0-36.0); MEAN CORPUSCULAR HEMOGLOB 31.4 pg (26.0-34.0); MEAN CORPUSCULAR VOLUME 95.4 fL (80-100); MEAN PLATELET VOLUME 10.2 fL (9.2-13.0); MONOCYTES 8.4 %; MONOCYTES ABSOLUTE 0.59 10/3/uL (0.21-1.20); NEUTROPHILS 46.9 %; PLATELET COUNT 139 10/3/uL (150-400); RBC DISTRIBUTION WIDTH 13.8 % (12.0-16.0); RED CELL COUNT 4.17 10/6/uL (4.0-5.6)
[2017-03-20 09:22] LABS: BUN (BLOOD UREA NITROGEN) 10 MG/DL (6-23); CALCIUM, SERUM 8.8 MG/DL (8.5-10.4); CHLORIDE, SERUM 98 MMOL/L (96-112); CO2 (CARBON DIOXIDE) 34 MMOL/L (24-34); CREATININE 0.85 MG/DL (0.55-1.02); GFR AFRICAN AMERICAN 74 ML/MIN (>=60); GFR NON AFRICAN AMERICAN 64 ML/MIN (>=60); GLUCOSE, SERUM 173 MG/DL (60-99); POTASSIUM, SERUM 4.2 MMOL/L (3.5-5.3); SODIUM, SERUM 135 MMOL/L (135-148)
[2017-03-20 09:23] LABS: MANUAL DIFF NO %
[2017-03-20 11:37] LABS: FERRITIN 402 NG/ML (8-252); IRON BINDING CAPACITY 208 MCG/DL (225-410)
[2017-03-20 11:45] LABS: IRON, SERUM 103 MCG/DL (35-150)
[2017-03-21 03:33] LABS: BASOPHILS 0.2 %; BASOPHILS ABSOLUTE 0.01 10/3/uL (0.0-0.16); EOSINOPHILS 2.4 %; EOSINOPHILS ABSOLUTE 0.16 10/3/uL (0.0-0.53); HEMATOCRIT 39.5 % (36.0-48.0); HEMOGLOBIN 13.2 g/dL (12.0-16.0); IMMATURE GRANULOCYTES 2.4 %; IMMATURE GRANULOCYTES ABSOLUTE 0.16 10/3/uL (0.0-0.11); LYMPHOCYTES 32.1 %; LYMPHOCYTES ABSOLUTE 2.11 10/3/uL (0.67-4.30); MANUAL DIFF NO %; MEAN CORPUS HGB CONC 33.4 g/dL (32.0-36.0); MEAN CORPUSCULAR VOLUME 95.6 fL (80-100); MEAN PLATELET VOLUME 10.3 fL (9.2-13.0); MONOCYTES ABSOLUTE 0.79 10/3/uL (0.21-1.20); NEUTROPHILS 50.9 %; NEUTROPHILS ABSOLUTE 3.34 10/3/uL (2.02-8.40); PLATELET COUNT 130 10/3/uL (150-400); RBC DISTRIBUTION WIDTH 13.9 % (12.0-16.0); RED CELL COUNT 4.13 10/6/uL (4.0-5.6); WHITE BLOOD CELLS 6.6 10/3/uL (4.5-10.5)
[2017-03-21 03:38] LABS: CALCIUM, SERUM 9.1 MG/DL (8.5-10.4); CHLORIDE, SERUM 97 MMOL/L (96-112); CO2 (CARBON DIOXIDE) 34 MMOL/L (24-34); CREATININE 0.99 MG/DL (0.55-1.02); GFR AFRICAN AMERICAN 62 ML/MIN (>=60); GFR NON AFRICAN AMERICAN 53 ML/MIN (>=60); SODIUM, SERUM 135 MMOL/L (135-148)
[2017-03-21 03:39] LABS: BUN (BLOOD UREA NITROGEN) 15 MG/DL (6-23); GLUCOSE, SERUM 128 MG/DL (60-99); POTASSIUM, SERUM 4.3 MMOL/L (3.5-5.3)
[2017-08-15] MEDS ORDERED: HYDROCHLOROT12.5 MG PO (21:40)
== END 2017-03-21 20:03 | DRG 871 ==
LOC: ER 10:53 → 6NO 13:40
PROVIDERS: Emergency Medicine; Internal Medicine; Internal Medicine Cardiovascular Disease; Internal Medicine Infectious Disease
PROC: B246ZZ4 Ultrasonography of Right and Left Heart, Transesophageal (ICD-10-PCS; principal; 2017-03-16)
PROC: 02HV33Z Insertion of Infusion Device into Superior Vena Cava, Percutaneous Approach (ICD-10-PCS; 2017-03-20)
PROC: 4A02X4A Measurement of Cardiac Electrical Activity, Guidance, External Approach (ICD-10-PCS; 2017-03-20)
DX: A41.81 Sepsis due to Enterococcus (principal); J96.21 Acute and chronic respiratory failure with hypoxia; I33.0 Acute and subacute infective endocarditis; E87.3 Alkalosis; I85.10 Secondary esophageal varices without bleeding; E11.649 Type 2 diabetes mellitus with hypoglycemia without coma; Z99.81 Dependence on supplemental oxygen; I73.9 Peripheral vascular disease, unspecified; I25.10 Atherosclerotic heart disease of native coronary artery without angina pectoris; J44.9 Chronic obstructive pulmonary disease, unspecified; B95.2 Enterococcus as the cause of diseases classified elsewhere; I10 Essential (primary) hypertension; K21.9 Gastro-esophageal reflux disease without esophagitis; E53.8 Deficiency of other specified B group vitamins; K74.60 Unspecified cirrhosis of liver; I86.8 Varicose veins of other specified sites; W19.XXXA Unspecified fall, initial encounter; Z79.4 Long term (current) use of insulin; Z95.4 Presence of other heart-valve replacement; Z83.3 Family history of diabetes mellitus; Z95.0 Presence of cardiac pacemaker; Z90.710 Acquired absence of both cervix and uterus; Z90.49 Acquired absence of other specified parts of digestive tract; Z87.891 Personal history of nicotine dependence
CPT/HCPCS: 36569; 36600; 71010; 71250; 74176; 80048; 80053; 80076; 80202; 81001; 82728; 82805; 82947; 82962; 83540; 83550; 83605; 83690; 83735; 83880; 84132; 84145; 84484; 85025; 85610; 87040; 87070; 87077; 87150; 87186; 87205; 87449; 87804; 93005; 93306; 93312; 93320; 93325; 94640; 96374; 97110-GP; 97116-GP; 97161-GP; 99291; A9270-GY; C1751; G8978-CK-GP; G8979-CJ-GP; J0290; J0360; J0456; J2405; J2920; J2930; J3370

== ENCOUNTER 2017-05-08 10:41 | Emergency (ER) | payer MEDICARE, OTHER ==
[2017-05-08 11:37] LABS: BASOPHILS 0.2 %; BASOPHILS ABSOLUTE 0.01 10/3/uL (0.0-0.16); EOSINOPHILS 4.2 %; EOSINOPHILS ABSOLUTE 0.26 10/3/uL (0.0-0.53); ER CBC TAT 0 Hrs 07 Mins; HEMATOCRIT 34.5 % (36.0-48.0); HEMOGLOBIN 11.7 g/dL (12.0-16.0); IMMATURE GRANULOCYTES 0.2 %; IMMATURE GRANULOCYTES ABSOLUTE 0.01 10/3/uL (0.0-0.11); LYMPHOCYTES 27.5 %; LYMPHOCYTES ABSOLUTE 1.71 10/3/uL (0.67-4.30); MANUAL DIFF NO %; MEAN CORPUS HGB CONC 33.9 g/dL (32.0-36.0); MEAN CORPUSCULAR HEMOGLOB 31.4 pg (26.0-34.0); MEAN CORPUSCULAR VOLUME 92.5 fL (80-100); MEAN PLATELET VOLUME 10.8 fL (9.2-13.0); MONOCYTES 7.2 %; MONOCYTES ABSOLUTE 0.45 10/3/uL (0.21-1.20); NEUTROPHILS 60.7 %; NEUTROPHILS ABSOLUTE 3.78 10/3/uL (2.02-8.40); PLATELET COUNT 113 10/3/uL (150-400); RBC DISTRIBUTION WIDTH 13.4 % (12.0-16.0); RED CELL COUNT 3.73 10/6/uL (4.0-5.6); WHITE BLOOD CELLS 6.2 10/3/uL (4.5-10.5)
[2017-05-08 11:53] LABS: ALBUMIN 3.2 G/DL (3.5-5.0); ALKALINE PHOSPHATASE 114 U/L (45-117); BUN (BLOOD UREA NITROGEN) 30 MG/DL (6-23); CALCIUM, SERUM 9.1 MG/DL (8.5-10.4); CHLORIDE, SERUM 107 MMOL/L (96-112); CO2 (CARBON DIOXIDE) 25 MMOL/L (24-34); CREATININE 1.33 MG/DL (0.55-1.02); GFR AFRICAN AMERICAN 43 ML/MIN (>=60); GFR NON AFRICAN AMERICAN 37 ML/MIN (>=60); GLUCOSE, SERUM 144 MG/DL (60-99); POTASSIUM, SERUM 4.6 MMOL/L (3.5-5.3); SGOT(AST) 25 U/L (5-40); SGPT(ALT) 24 U/L (5-65); SODIUM, SERUM 138 MMOL/L (135-148); TOTAL BILIRUBIN 0.8 MG/DL (0-1.2); TOTAL PROTEIN 6.5 G/DL (6.0-8.5)
[2017-05-08 11:54] LABS: GLOBULIN 3.3 G/DL (2.5-4.1)
[2017-05-08 14:22] LABS: ASCORBIC ACID (UR NOT ORDER) NEG (NEG); BILIRUBIN, URINE NEGATIVE (NEG); ER URINALYSIS TAT 0 Hrs 10 Mins; KETONE, URINE NEGATIVE (NEG); LEUKOCYTE ESTERASE(NOT OR NEG (NEG); NITRITE (URINE) NEG (NEG); WBC (NOT ORDERED) (RFLEX) < 1 (0-5)
[2017-05-08 15:02] LABS: PROCALCITONIN 0.05 ng/mL (<0.5)
[2017-05-08 15:42] LABS: LACTATE 1.6 MMOL/L (0.3-2.4)
[2017-08-15] MEDS ORDERED: HYDROCHLOROT12.5 MG PO (21:40)
== END 2017-05-08 19:11 | disposition home or self-care (01) ==
LOC: ER 10:41
PROVIDERS: Emergency Medicine; Physician Assistant
DX: K55.1 Chronic vascular disorders of intestine (principal); J44.9 Chronic obstructive pulmonary disease, unspecified; I10 Essential (primary) hypertension; K21.9 Gastro-esophageal reflux disease without esophagitis; E11.9 Type 2 diabetes mellitus without complications; Z88.5 Allergy status to narcotic agent; Z95.5 Presence of coronary angioplasty implant and graft; Z87.891 Personal history of nicotine dependence; Z95.0 Presence of cardiac pacemaker; Z79.82 Long term (current) use of aspirin; Z79.4 Long term (current) use of insulin; Z79.899 Other long term (current) drug therapy
CPT/HCPCS: 74176; 80053; 81001; 83605; 83690; 84145; 85025; 87040; 87493; 87493-59; 96374; 99284; J2405

== ENCOUNTER 2017-08-01 09:43 | Emergency (ER) | payer MEDICARE, OTHER ==
[~2017-08-01 09:43] MED LIST changes: -ALBUTEROL0.083 % INH; +APRES10B PO; -APRES25 PO; -DULERA 200 MCG/13 GM INH; -SPIRO50 PO
[2017-08-01 10:39] LABS: BASOPHILS 0 %; EOSINOPHILS 0.2 %; EOSINOPHILS ABSOLUTE 0.02 10/3/uL (0.0-0.53); HEMATOCRIT 29.4 % (36.0-48.0); HEMOGLOBIN 9.9 g/dL (12.0-16.0); IMMATURE GRANULOCYTES 0.3 %; IMMATURE GRANULOCYTES ABSOLUTE 0.03 10/3/uL (0.0-0.11); LYMPHOCYTES 22.3 %; LYMPHOCYTES ABSOLUTE 1.92 10/3/uL (0.67-4.30); MEAN CORPUS HGB CONC 33.7 g/dL (32.0-36.0); MEAN CORPUSCULAR HEMOGLOB 30.7 pg (26.0-34.0); MEAN CORPUSCULAR VOLUME 91.3 fL (80-100); MEAN PLATELET VOLUME 10.2 fL (9.2-13.0); MONOCYTES 8.8 %; MONOCYTES ABSOLUTE 0.76 10/3/uL (0.21-1.20); NEUTROPHILS 68.4 %; NEUTROPHILS ABSOLUTE 5.87 10/3/uL (2.02-8.40); PLATELET COUNT 121 10/3/uL (150-400); RBC DISTRIBUTION WIDTH 14.7 % (12.0-16.0); RED CELL COUNT 3.22 10/6/uL (4.0-5.6); WHITE BLOOD CELLS 8.6 10/3/uL (4.5-10.5)
[2017-08-01 10:40] LABS: MANUAL DIFF NO %
[2017-08-01 10:56] LABS: A/G RATIO 0.6 (0.7-1.9); ALBUMIN 2.7 G/DL (3.5-5.0); ALKALINE PHOSPHATASE 111 U/L (45-117); CALCIUM, SERUM 8.6 MG/DL (8.5-10.4); CHLORIDE, SERUM 104 MMOL/L (96-112); CO2 (CARBON DIOXIDE) 21 MMOL/L (24-34); CREATININE 0.94 MG/DL (0.55-1.02); GFR AFRICAN AMERICAN 66 ML/MIN (>=60); GFR NON AFRICAN AMERICAN 57 ML/MIN (>=60); GLOBULIN 4.2 G/DL (2.5-4.1); POTASSIUM, SERUM 4.5 MMOL/L (3.5-5.3); SGOT(AST) 18 U/L (5-40); SGPT(ALT) 13 U/L (5-65); TOTAL PROTEIN 6.9 G/DL (6.0-8.5)
[2017-08-01 10:57] LABS: BUN (BLOOD UREA NITROGEN) 17 MG/DL (6-23); GLUCOSE, SERUM 131 MG/DL (60-99); SODIUM, SERUM 133 MMOL/L (135-148); TOTAL BILIRUBIN 1.5 MG/DL (0-1.2)
[2017-08-01 12:18] LABS: ASCORBIC ACID (UR NOT ORDER) NEG (NEG); BILIRUBIN, URINE NEGATIVE (NEG); ER URINALYSIS TAT 0 Hrs 08 Mins; KETONE, URINE NEGATIVE (NEG); NITRITE (URINE) NEG (NEG); WBC (NOT ORDERED) (RFLEX) 4 (0-5)
[2017-08-01 12:24] LABS: LEUKOCYTE ESTERASE(NOT OR TRACE (NEG)
== END 2017-08-01 13:36 | disposition home or self-care (01) ==
LOC: ER 09:43
PROVIDERS: Student in an Organized Health Care Education/Training Program
DX: R53.1 Weakness (principal); R19.7 Diarrhea, unspecified; I11.0 Hypertensive heart disease with heart failure; I50.9 Heart failure, unspecified; J44.9 Chronic obstructive pulmonary disease, unspecified; K21.9 Gastro-esophageal reflux disease without esophagitis; F41.9 Anxiety disorder, unspecified; E11.9 Type 2 diabetes mellitus without complications; Z90.49 Acquired absence of other specified parts of digestive tract; Z95.0 Presence of cardiac pacemaker; Z95.5 Presence of coronary angioplasty implant and graft; Z88.5 Allergy status to narcotic agent; Z79.82 Long term (current) use of aspirin; Z79.4 Long term (current) use of insulin; Z79.899 Other long term (current) drug therapy
CPT/HCPCS: 74176; 80053; 81001; 83690; 85025; 99285